=== PATIENT | male | born 1945 | race Caucasian/White ===

== ENCOUNTER → 2020-11-24 18:00 | Outpatient (CLI) | payer MEDICARE, MEDICAID ==
[2020-11-25 10:54] LABS: BASOPHILS 0.1 % (0-2); EOSINOPHILS 1.7 % (0-7); HEMATOCRIT 44.7 % (42.0-54.0); HEMOGLOBIN 12.9 g/dL (13.5-17.5); IMMATURE GRANULOCYTES 0.4 % (0-5); LYMPHOCYTE ABS# 0.65 10x3/uL (1.32-3.57); LYMPHOCYTES 6.7 % (15-50); MCH 29.7 pg (26.0-34.0); MCHC 28.9 g/dL (31.0-37.0); MCV 102.8 fL (80.0-100.0); MONOCYTES 10.6 % (2-11); NEUTROPHIL ABS# 7.83 10x3/uL (1.78-5.38); NEUTROPHILS 80.5 % (40-80); PLATELET COUNT 255 10x3/uL (130-400); RBC 4.35 10x6/uL (4.20-6.10); WBC 9.7 10x3/uL (4.8-10.8)
[2020-11-25 11:06] LABS: ALBUMIN 2.5 g/dL (3.4-5.0); ANION GAP 7.5 mmol/L (8-16); BILIRUBIN - TOTAL 0.53 mg/dL (0.2-1.3); CALCIUM 8.8 mg/dL (8.5-10.1); CARBON DIOXIDE 39.4 mmol/L (21.0-32.0); CREATININE - SERUM 1.4 mg/dL (0.6-1.3); POTASSIUM - SERUM 4.9 mmol/L (3.5-5.1)
== END | disposition home or self-care (01) ==
LOC: D.LABREF 18:00
PROVIDERS: ATTEND Family Medicine
DX: E11.65 Type 2 diabetes mellitus with hyperglycemia (principal); I50.31 Acute diastolic (congestive) heart failure; I10 Essential (primary) hypertension; E53.8 Deficiency of other specified B group vitamins